=== PATIENT | male | born 1960 | race Caucasian/White ===

== ENCOUNTER 2024-02-03 11:50 | Day surgery (SDC) | payer MEDICARE, BC ==
[~2024-02-03] VITALS: Ht 177.8 cm; Wt 62.4 kg
[2024-02-03] VITALS (8 sets, daily range): BP systolic 102–160; BP diastolic 63–80; PULSE 89–95; RESP 16–19; TEMP 97.9; O2SAT 95–98
[2024-02-03] MEDS ORDERED: normal saline 1,000 ML IV SCH (12:25)
[2024-02-03] MEDS ORDERED: EMPA10TA PO (12:26)
[2024-02-03] MEDS ORDERED: ATOR-411 PO (12:26)
[2024-02-03] MEDS ORDERED: SACU1TAB PO (12:26)
[2024-02-03] MEDS ORDERED: METO-384 PO (12:26)
[2024-02-03] MEDS ORDERED: ASPI81TA52 PO (12:26)
[2024-02-03] MEDS ORDERED: NITR0.4T48 SL (12:26)
[2024-02-03] MEDS ORDERED: RIVA20TA PO (12:26)
[2024-02-03] MEDS ORDERED: SILD20TA14 PO (12:26)
[2024-02-03] MEDS ORDERED: MAGN420T PO (12:26)
[2024-02-03 12:40] LABS: BASOPHILS # (AUTO) 0.1 X10'3 (0-0.2); BASOPHILS % (AUTO) 1.3 % (0-1); EOSINOPHILS # (AUTO) 0.1 X10'3 (0-0.9); EOSINOPHILS % (AUTO) 1.7 % (0-6); HEMATOCRIT 46.3 % (42.0-52.0); HEMOGLOBIN 15.9 g/dl (14.0-17.9); LYMPHOCYTES # (AUTO) 0.8 X10'3 (1.1-4.8); LYMPHOCYTES % (AUTO) 14.2 % (21-51); MEAN CORPUSCULAR HEMOGLOBIN 30.3 PG (27.0-31.0); MEAN CORPUSCULAR HGB CONC 34.2 g/dL (33.0-36.5); MEAN CORPUSCULAR VOLUME 88.5 FL (78-98); MEAN PLATELET VOLUME 7.8 FL (7.4-10.4); MONOCYTES # (AUTO) 0.8 X10'3 (0-0.9); MONOCYTES % (AUTO) 12.6 % (2-12); NEUTROPHILS # (AUTO) 4.2 X10'3 (1.8-7.7); NEUTROPHILS % (AUTO) 70.2 % (42-75); PLATELET COUNT 221 X10'3 (140-440); RED BLOOD COUNT 5.24 X10'6 (4.70-6.10); RED CELL DISTRIBUTION WIDTH 14.3 % (11.5-14.5); WHITE BLOOD COUNT 5.9 X10'3 (4.5-11.0)
[2024-02-03 12:45] LABS: APTT 35 SECONDS (22-32); PROTHROMBIN TIME 10.8 SECONDS (9.0-12.0)
[2024-02-03 12:55] LABS: ALBUMIN 3.3 G/DL (3.4-5.0); ANION GAP 11 (8-16); BLOOD UREA NITROGEN 23 MG/DL (7-18); BUN/CREATININE RATIO 22.8 (10.0-20.0); CALCIUM 8.6 MG/DL (8.5-10.1); CHLORIDE 104 MMOL/L (99-107); CHOL/HDL RATIO 3.3 (0.00-4.99); CHOLESTEROL 169 MG/DL (0-200); CREATININE 1.01 MG/DL (0.60-1.10); GLUCOSE 95 MG/DL (70-104); HDL CHOLESTEROL 51 MG/DL (35-60); LDL CHOLESTEROL 110 MG/DL (50-100); POTASSIUM 3.9 MMOL/L (3.5-5.1); SODIUM 138 MMOL/L (135-145); TOTAL CARBON DIOXIDE 23.1 MMOL/L (24-32); TRIGLYCERIDES 115 MG/DL (20-135); eCRCL 64 ML/MIN; eGFR 74 ML/MIN
[2024-02-03] MEDS: LORazepam 0.5 MG tablet PO PRN (13:28)
[2024-02-03] MEDS: diphenhydrAMINE 25mg capsule PO PRN (13:28)
[2024-02-03] MEDS ORDERED: verapamil 2.5 mg/ml inj IV ONE (14:05)
[2024-02-03] MEDS ORDERED: LIDOcaine 1% (10mg/ml) 2ml vial ONE (14:05)
[2024-02-03] MEDS ORDERED: fentaNYL/PF 50MCG/1 ML 2ML syringe ONE (14:06)
[2024-02-03] MEDS ORDERED: heparin 1,000unit/ml 10ml vial 10 ML ONE (14:06)
[2024-02-03] MEDS ORDERED: midazolam 1 mg/ML 2ml injection ONE (14:06)
[2024-02-03] MEDS ORDERED: iohexol 350MG/ML 100ml bottle IV ONE (14:06)
[2024-02-03] MEDS ORDERED: nitroGLYCERIN 500mcg/5mL D5W 5 ML IV ONE (14:14)
[2024-02-03] MEDS ORDERED: iohexol 350 MG/ML 50ML vial IV ONE (14:34)
[2024-02-03] MEDS ORDERED: HYDROcodone/acetaminophen 5mg/325mg tablet PO PRN (15:30)
[2024-02-03] MEDS ORDERED: HYDROcodone/acetaminophen 10/325mg tab PO PRN (15:30)
== END 2024-02-03 17:12 | disposition home or self-care (01) ==
LOC: SSTAY O 11:50
PROVIDERS: ATTEND Student in an Organized Health Care Education/Training Program
DX: I11.0 Hypertensive heart disease with heart failure (principal); I50.22 Chronic systolic (congestive) heart failure; I25.10 Atherosclerotic heart disease of native coronary artery without angina pectoris; E78.00 Pure hypercholesterolemia, unspecified; I48.91 Unspecified atrial fibrillation; Z79.82 Long term (current) use of aspirin; Z79.899 Other long term (current) drug therapy; Z95.1 Presence of aortocoronary bypass graft; Z88.0 Allergy status to penicillin; Z82.49 Family history of ischemic heart disease and other diseases of the circulatory system
CPT/HCPCS: 36415; 80048; 80061; 85025; 85610; 85730; 93005; 93458; 93571; 99152; J1644; J2250; J3010; J3490; J7030; Q0163; Q9967; 99153; A6258; A6402; C1751; C1894